=== PATIENT | male | born 2000 | race Caucasian/White ===

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

== ENCOUNTER 2023-09-03 15:21 | Emergency (ER) | payer OTHER, SELFPAY ==
[2023-09-03 15:34] VITALS: BP 138/73; PULSE 76; RESP 17; TEMP 36.8; O2SAT 100; BMI 20.9
== END 2023-09-03 18:44 | disposition left against medical advice (07) ==
PROVIDERS: Emergency Provider Emergency Medicine; Family Provider Pediatrics; PCP Pediatrics
CPT/HCPCS: 99281

== ENCOUNTER 2023-09-04 18:48 | Emergency (ER) | payer OTHER, SELFPAY ==
[2023-09-04 18:58] VITALS: BP 136/67; PULSE 90; O2SAT 99
[2023-09-04 19:00] VITALS: BP 136/68; PULSE 88; RESP 14; TEMP 36.9; O2SAT 99; BMI 20.9
[2023-09-04 19:04] VITALS: BP 135/69; PULSE 92; O2SAT 99
--- NOTE | 2023-09-04 19:18 | ED_ITS ---
HPI - Headache General Chief Complaint: Headache Stated Complaint: headache Time Seen by Provider: 09/04/23 18:50 Source: patient Mode of arrival: Ambulatory Limitations: no limitations History of Present Illness HPI Narrative: Patient is a 23-year-old male who is here for evaluation of a headache. He has had the headache for the past 4 days. He states it has been intermittent for the past 4 days. He did have yesterday. He was here in the emergency department for a period of time but left without being seen. The reason that he left was because after sitting in the waiting room has headache resolved. He went to bed last night without headache. Woke up this morning feeling okay. He was around noon today when the headache started. It was very similar to what it felt like yesterday but now it is on both sides of his forehead more on the right than the left bite his right eye and under his right eye. No neck pain. No fevers. He was holding a couple days ago and did hit his head. There was no loss of consciousness. He was wearing a helmet. He does not think that the headache today is related to hitting his head while snowboarding. Related Data Home Medications Medication Instructions Recorded Confirmed metoclopramide HCl 10 mg tablet 10 mg PO PRN PRN Pain (Scale Score 09/03/23 09/03/23 1-3) Allergies Allergy/AdvReac Type Severity Reaction Status Date / Time No Known Drug Allergies Allergy Verified 09/03/23 15:37 Review of Systems Constitutional Constitutional: Reports system reviewed and no additional complaints, except as documented Eyes Eyes: Reports system reviewed and no additional complaints, except as documented Cardiovascular Cardiovascular: Reports system reviewed and no additional complaints, except as documented Integumentary/Breasts Skin/Breast: Reports system reviewed and no additional complaints, except as documented Neurologic Neurologic: Reports system reviewed and no additional complaints, except as documented Hematologic/Lymphatic On Anticoagulants: No Patient History Medical History Rib pain on left side Social History Smoking Status: Current every day smoker Smoking Status: Current every day smoker tobacco type: vaping alcohol intake frequency: a few times a week Substance Use Type: does not use Exam Initial Vital Signs Initial Vital Signs: Vital Signs Pulse Rate 90 09/04/23 18:58 Blood Pressure 136/67 09/04/23 18:58 Pulse Oximetry 99 09/04/23 18:58 HENCT Head: normal to inspection and normocephalic Face and sinus: sinus tenderness frontal (Right) and maxillary (Right) Eyes Periorbital: periorbital findings normal Resp Effort & Inspection: normal respiratory effort Auscultation: clear to auscultation bilaterally Skin General: no rashes or lesions noted Neuro General: patient alert, patient awake and moves all extremities Course Orders Ordered: Discontinued Medications Sodium Chloride (Normal Saline 0.9%) 1,000 mls @ 1,000 mls/hr IV BOLUS ONE Stop: 09/04/23 20:17 Last Infusion: 09/04/23 20:25 Dose: Infused Documented By: Admin: 09/04/23 19:31 Dose: 1,000 mls/hr Documented By: MARILU Acetaminophen (Ofirmev) 1,000 mg in 100 mls @ 400 mls/hr IV NOW ONE Stop: 09/04/23 19:32 Last Infusion: 09/04/23 19:50 Dose: Infused Documented By: Admin: 09/04/23 19:32 Dose: 400 mls/hr Documented By: MARILU Ketorolac Tromethamine (Ketorolac 30 Mg/Ml Vial) 30 mg IV NOW ONE Stop: 09/04/23 19:19 Last Admin: 09/04/23 19:32 Dose: 30 mg Documented By: MARILU Methylprednisolone (Methylprednisolone 125 Mg/2 Ml Vial) 125 mg IV NOW ONE Stop: 09/04/23 20:16 Last Admin: 09/04/23 20:23 Dose: 125 mg Documented By: MARILU Vital Signs Vital signs: Vital Signs - 8 hr 09/04/23 18:58 09/04/23 18:58 09/04/23 19:00 Temperature 98.4 F Pulse Rate 90 88 Respiratory Rate 14 Blood Pressure 136/67 136/68 Pulse Oximetry 99 99 Oxygen Delivery Method Room Air 09/04/23 19:04 09/04/23 19:04 09/04/23 19:30 Temperature Pulse Rate 92 H 101 H Respiratory Rate Blood Pressure 135/69 Pulse Oximetry 99 100 Oxygen Delivery Method Room Air 09/04/23 19:31 09/04/23 19:31 09/04/23 20:26 Temperature Pulse Rate 104 H 103 H Respiratory Rate 17 Blood Pressure 116/67 141/66 H Pulse Oximetry 100 100 Oxygen Delivery Method Room Air Room Air MDM - Headache MDM Narrative Medical decision making narrative: Patient reports a complete resolution of symptoms after medications here in the ER. Low suspicion for meningitis. Low suspicion for intracranial hemorrhage. I do have suspicion that this is sinus related so he was given a dose of steroids. No indication for antibiotics. We discussed medications that he cou ld try at home for the symptoms. He was given return precautions. He expressed understanding and agreement. Discharge Plan Departure Patient Disposition: Home Clinical Impression: Headache Instructions: DI for Headache Activity Restrictions/Additional Instructions: I do recommend that you take a daily antihistamine such as Claritin or Zyrtec. You can do Sudafed as well. Also recommended nasal spray such as Flonase or Nasonex. Tylenol and ibuprofen can be helpful for the discomfort. Return to the emergency department for new symptoms Prescriptions: No Action metoclopramide HCl 10 mg tablet 10 mg PO PRN PRN (Reason: Pain (Scale Score 1-3)) Referrals: Loren Enciso MD [Primary Care Provider] - Stand Alone Forms: Patient Portal/API, Work Release Note
[2023-09-04 19:30] VITALS: PULSE 101; O2SAT 100
[2023-09-04 19:31] VITALS: BP 116/67; PULSE 104; O2SAT 100
[2023-09-04] MEDS: SODIUM CHLORIDE 0.9% 1,000 ML 1000 ML IV (19:31)
[2023-09-04] MEDS: KETOROLAC 30 MG/ML VIAL IV (19:32)
[2023-09-04] MEDS: ACETAMINOPHEN IV 1,000 MG/100 ML VIAL 400 MG IV (19:32)
[2023-09-04] MEDS: methylPREDNISolone 125 MG/2 ML VIAL IV (20:23)
[2023-09-04 20:26] VITALS: BP 141/66; PULSE 103; RESP 17; O2SAT 100
== END 2023-09-04 20:36 | disposition home or self-care (01) ==
PROVIDERS: Emergency Provider Emergency Medicine; Family Provider Pediatrics; PCP Pediatrics
DX: R51.9 Headache, unspecified (principal)
CPT/HCPCS: 96365; 96375; 99283; 99284; J0136; J1885; J2930

== ENCOUNTER 2023-12-18 23:31 | Emergency (ER) | payer OTHER, SELFPAY ==
[2023-12-18 23:38] VITALS: BP 139/81; PULSE 114; RESP 16; TEMP 36.5; O2SAT 98; BMI 21.6
--- NOTE | 2023-12-18 23:54 | ED.WOUNDLAC ---
HPI - Wound/Laceration General Chief Complaint: Wound/Laceration Stated Complaint: cut his rt hand open Time Seen by Provider: 12/18/23 23:43 Source: patient and family Mode of arrival: Ambulatory History of Present Illness HPI narrative: 23-year-old vaccinated male presents for right hand injury. Patient was angry and punched a window that subsequently cut his hand. Related Data Home Medications Medication Instructions Recorded Confirmed metoclopramide HCl 10 mg tablet 10 mg PO PRN PRN Pain (Scale Score 09/03/23 09/03/23 1-3) Allergies Allergy/AdvReac Type Severity Reaction Status Date / Time No Known Drug Allergies Allergy Verified 09/03/23 15:37 Patient History Medical History Rib pain on left side Social History Smoking Status: Current every day smoker Smoking Status: Current every day smoker tobacco type: vaping alcohol intake frequency: a few times a week Substance Use Type: does not use Exam Initial Vital Signs Initial Vital Signs: Vital Signs Temperature 97.7 F 12/18/23 23:38 Pulse Rate 114 H 12/18/23 23:38 Respiratory Rate 16 12/18/23 23:38 Blood Pressure 139/81 12/18/23 23:38 Pulse Oximetry 98 12/18/23 23:38 Oxygen Delivery Method Room Air 12/18/23 23:38 Const: Awake, alert, no acute distress, nontoxic appearing MSK: Multiple superficial lacerations over right knuckles, full range of motion both extension and flexion Skin: 1 cm laceration dorsum of hand at base of pinky finger, 1.5 cm oblique laceration lateral index finger over the PIP Neuro: AO x3, CN II-XII grossly intact, moves all extremities Procedures Laceration Repair Laceration 1: Site: hand Side (If applicable): right Size (cm): 1.5 Description: linear and clean Depth: simple, single layer Local Anesthetic: lidocaine 1% Amount of anesthesia used (mL): 3 Pre-repair: wound explored, irrigated extensively and deep structures intact Skin layer closed with: nylon Skin layer suture size: 5-0 Number of sutures: 5 Technique: simple, interrupted Laceration 2: Site: hand Side (If applicable): right Size (cm): 1 Description: linear Depth: simple, single layer Local Anesthetic: lidocaine 1% Amount of anesthesia used (mL): 1 Pre-repair: wound explored, irrigated extensively and deep structures intact Skin layer closed with: nylon Skin layer suture size: 5-0 Number of sutures: 3 Technique: simple, interrupted Course Vital Signs Vital signs: Vital Signs - 8 hr 12/18/23 23:38 12/19/23 00:46 Temperature 97.7 F Pulse Rate 114 H 97 H Respiratory Rate 16 17 Blood Pressure 139/81 118/79 Pulse Oximetry 98 99 Oxygen Delivery Method Room Air Room Air MDM - Wound/Laceration Differential Diagnosis Differential diagnosis: Likely laceration, abscess and abrasion MDM Narrative Medical decision making narrative: Lacerations to right hand after punching a window. He was numerous superficial lacerations over his knuckles, however 2 deeper lacerations, 1 on the right index finger that is oblique across the PIP joint and 1 that is horizontal at the base of the 5th finger. No evidence of tendon involvement, full flexion and extension of all fingers at each joint. Wound irrigated extensively with Betadine and normal saline. Tetanus is up-to-date. Repaired per procedure note. Dressing applied. Discharge Plan Departure Patient Disposition: Home Clinical Impression: Hand laceration Instructions: DI for Laceration Repair Activity Restrictions/Additional Instructions: Return in 5-7 days for suture removal. Please keep the wounds clean and dry. If you notice redness, drainage, swelling of the area please return for repeat evaluation. Prescriptions: No Action metoclopramide HCl 10 mg tablet 10 mg PO PRN PRN (Reason: Pain (Scale Score 1-3)) Referrals: Loren Enciso MD [Primary Care Provider] - Stand Alone Forms: Patient Portal/API
[2023-12-19 00:46] VITALS: BP 118/79; PULSE 97; RESP 17; O2SAT 99
== END 2023-12-19 00:47 | disposition home or self-care (01) ==
PROVIDERS: Emergency Provider Emergency Medicine; Family Provider Pediatrics; PCP Pediatrics
DX: S61.411A Laceration without foreign body of right hand, initial encounter (principal); S61.210A Laceration without foreign body of right index finger without damage to nail, initial encounter; W22.8XXA Striking against or struck by other objects, initial encounter; Y93.89 Activity, other specified
CPT/HCPCS: 12001; 99282; 99283